=== PATIENT | female | born 1960 | race Caucasian/White ===

== ENCOUNTER 2016-10-07 11:03 | Day surgery (SDC) | payer BC ==
[~2016-10-07] VITALS: Ht 160 cm; Wt 53.5 kg
[2016-10-07] MEDS ORDERED: LACTATED RINGERS 1,000 ML IV SCH (11:55)
[2016-10-07] MEDS ORDERED: FENTANYL PF 100 MCG/2ML ONE (11:56)
[2016-10-07] MEDS ORDERED: MIDAZOLAM 1 MG/ML, 2ML ONE (11:56)
[2016-10-07] MEDS ORDERED: HYDR200T PO (11:58)
[2016-10-07] MEDS ORDERED: ELUX100T PO (11:58)
[2016-10-07 12:13] VITALS: BP 110/74
[2016-10-07] MEDS ORDERED: BUPIVACAINE/PF-EPI 0.5% 1:200K ONE (12:24)
[2016-10-07] MEDS ORDERED: HYDROmorphone 1 MG/ML, 1ML IV PRN (12:30)
[2016-10-07] MEDS ORDERED: PROMETHAZINE 25 MG/ML, 1ML IV PRN (12:30)
[2016-10-07] MEDS ORDERED: FENTANYL PF 100 MCG/2ML IV PRN (12:30)
[2016-10-07] MEDS ORDERED: ONDANSETRON 2MG/ML, 2ML IVPush PRN (12:30)
[2016-10-07] MEDS ORDERED: OXYcodone 5 MG/5 ML ORAL.SOL UDC PO PRN (12:30)
[2016-10-07] MEDS ORDERED: LIDOCAINE 0.5%-EPI 1:200K, 50ML ONE (12:32)
[2016-10-07] MEDS ORDERED: CLINDAMYCIN 150 MG/ML, 6ML ONE ×2 (12:55→12:57)
== END 2016-10-07 14:10 ==
LOC: OUT 11:03
PROVIDERS: ATTEND Orthopaedic Surgery
DX: M65.312 Trigger thumb, left thumb (principal); Z88.0 Allergy status to penicillin; Z88.8 Allergy status to other drugs, medicaments and biological substances
CPT/HCPCS: 26055; J2250; J3010; J7120